=== PATIENT | female | born 2000 | race American Indian/Alaskan Native ===

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

== ENCOUNTER 2022-04-13 00:14 | Observation (INO) | payer MEDICAID ==
[2022-04-13] MEDS ORDERED: LACTATED RINGERS 500 ML IV ONE (00:37)
--- NOTE | 2022-04-13 02:07 | Ultrasound Report ---
ULTRASOUND OBSTETRIC LIMITED INDICATION / CLINICAL INFORMATION: ROL ABRUPTION. Clinical Gestational Age (GA) in weeks, days: 29 weeks 5 days TECHNIQUE: Transabdominal. COMPARISON: None available. FINDINGS: Single live intrauterine in cephalic presentation with heart rate measuring 159 bpm. Placenta is right anterolateral. No evidence of placental lifting or separation. No retroplacental he matoma. IMPRESSION: Single live intrauterine without significant abnormality. No evidence of placental abruptio n. Signer Name: Fabio Vicente MD Signed: 04/13/2022 2:02 AM Workstation Name: [id number]
[2022-04-13] MEDS ORDERED: LACTATED RINGERS 1,000 ML ONE (05:38)
[2022-04-13] MEDS ORDERED: DOCUSATE SODIUM 100 MG CAP PO PRN (05:38)
[2022-04-13] MEDS ORDERED: ACETAMINOPHEN 325 MG TAB PO PRN (05:38)
--- NOTE | 2022-04-13 06:04 | History and Physical Report ---
History of Present Illness Date of examination: 04/13/22 Chief complaint: Vaginal bleeding, no care History of present illness: This is a 21-year-old female G2, P1 who presents with vaginal bleeding that started this morning. Patient states she has had spotting the last couple days however while sitting on her sofa she felt wet and went to the bathroom and noticed large amount of blood. On pelvic exam she was noted to be closed however she had moderate blood on the glove she is admitted now for observation. Patient states she is 29 weeks by her LMP she has not had any care. Past History Past Medical History: no pertinent history Past Surgical History: no surgical history - Obstetrical History : 2 Medications and Allergies Allergies Allergy/AdvReac Type Severity Reaction Status Date / Time No Known Allergies Allergy Verified 08/24/18 02:45 Home Medications Medication Instructions Recorded Confirmed Last Taken Type Bacitracin/Polymy B Opth Oint 1 applicatio OP BID 10 Days #2 tube 08/24/18 Unknown Rx [Polysporin Opth Oint] Ibuprofen 600 mg PO TID PRN #30 tablet 08/24/18 Unknown Rx Active Meds: Active Medications Acetaminophen (Acetaminophen 325 Mg Tab) 650 mg PO Q6H PRN PRN Reason: Pain MILD(1-3)/Fever >100.5/GAO Docusate Sodium (Docusate Sodium 100 Mg Cap) 100 mg PO Q12H PRN PRN Reason: Constipation Multivitamins/Iron/Calcium ( [id number]-[id number] Fumarate-Folic Acid Vit Tab) 1 each PO QDAY ROLANDO - Vital Signs Vital signs: Vital Signs Temp Resp Pulse Ox 98.0 F 14 100 04/13/22 00:29 04/13/22 00:29 04/13/22 00:29 Temp Pulse Resp BP Pulse Ox 98.3 F 89 14 89/55 100 04/13/22 03:02 04/13/22 06:01 04/13/22 00:29 04/13/22 05:41 04/13/22 06:01 - Physical Exam Cardiovascular: Regular rate Lungs: Positive: Normal air movement Abdomen: Positive: normal appearance. Negative: tenderness Genitourinary (Female): Positive: normal external genitalia, normal perenium (Blood noted on medial thighs and vulva) Uterus: Positive: enlarged. Negative: tender Anus/Rectum: Positive: normal perianal skin Extremities: Positive: normal. Negative: tenderness, edema - Obstetrical FHR: category 1 Uterine Contraction Monitor Mode: External Cervical Dilatation: 0 Cervical Effacement Percentage: 0 station: -3 Uterine Contraction Pattern: Absent Results All other labs normal. Assessment and Plan - Patient Problems (1) Vaginal bleeding during Current Visit: Yes Status: Acute (2) No care in current Current Visit: Yes Status: Acute
[2022-04-13 06:31] LABS: Hematocrit 26.9 % (30.3-42.9); Hemoglobin 9.3 gm/dl (10.1-14.3); Mean Corpuscular HGB Conc 35 % (30-34); Mean Corpuscular Volume 78 fl (79-97); Platelet Count 230 K/mm3 (140-440); Red Blood Count 3.45 M/mm3 (3.65-5.03); Red Cell Distribution Width 14.4 % (13.2-15.2)
--- NOTE | 2022-04-13 06:42 | Ultrasound Report ---
ULTRASOUND OBSTETRIC COMPLETE INDICATION / CLINICAL INFORMATION: EFW, presentation. Clinical Gestational Age (GA) in weeks, days: 29 weeks 5 days TECHNIQUE: Transabdominal. COMPARISON: None available. FINDINGS: NUMBER: Single PRESENTATION: cephalic MEASUREMENTS: - Biparietal Diameter = 8.1 cm = 32 weeks 3 days - Head Circumference = 29.1 cm = 32 weeks 0 days - Abdominal Circumference = 27.3 cm = 31 weeks 3 days - Femur Length = 6.5 cm = 33 weeks 2 days - Estimated Weight (in grams, if calculated): 1904 - Heart Rate (beats per minute): 149 ADDITIONAL FINDINGS: None. AVERAGE ULTRASOUND AGE (AUA) in weeks, days = 32 weeks 2 days IMPRESSION: Single live intrauterine with ultrasound age of 32 weeks and 2 days. Estimated weight is 1904 g. Signer Name: Fabio Vicente MD Signed: 04/13/2022 6:37 AM Workstation Name: [id number]
[2022-04-13] MEDS ORDERED: PRENATAL VIT27-FE FUMARATE-FOLIC ACID VIT TAB PO SCH (10:00)
--- NOTE | 2022-04-13 13:34 | Discharge Summary ---
Providers - Providers Date of Admission: 04/13/22 05:38 Date of discharge: 04/13/22 Attending physician: ERNA PERRY 04/13/22 Consult to Case Management [CONS] Routine Services Needed at Discharge: Seo Manager Primary care physician: CARLOS BALDWIN MD Hospitalization Reason for admission: observation Discharge diagnosis: other (IUP) Pertinent studies: Ultrasound reports reviewed. No signs of placental abruption documented. Condition at discharge: Good Disposition: 01 HOME / SELF CARE / HOMELESS - Discharge Diagnoses (1) 32 weeks gestation of Status: Acute Comment: FHT's category 1 and no contractions noted. Pt denies feeling dizzy or lightheaded or having any difficulty with ambulation. Pt denies having any complaints and reports she feels safe to discharge to current housing. (2) No care in current Status: Acute Comment: VS reviewed with pt and Dr. Toro. Pt reports these are normal blood pressures for her. (3) Vaginal bleeding during Status: Acute Comment: No vaginal bleeding noted since pt admission to observation. Pt reports good movement and denies feeling any pain or contractions. POC d/w pt. Discussed need for care and OB follow up. Questions encouraged. No questions verbalized at this time. Pt verbalizes understanding and agrees to POC. Dr Toro made aware. Plan - Provider Discharge Summary Activity: routine, no sex for 6 weeks, no heavy lifting 4 weeks, no strenuous exercise Diet: routine Instructions: routine Additional instructions: [] Smoking cessation referral if applicable(refer to patient education folder for contact #) [] Refer to [facility] Booklet Call your doctor immediately for: * Fever > 100.5 * vaginal bleeding * more than 6 contractions in one hour * leaking vaginal fluid suspicious of bag of riggins broken * Severe persistent headache * Shortness of breath * Reddened, hot, painful area to leg or breast * decreased movement, less than 10 movements in 2 hours Please call [phone] and schedule an OB visit tomorrow. Thank you! - Follow up plan Follow up: PRIMARY CARE, [Primary Care Provider] - 7 Days
--- NOTE | 2022-04-13 16:33 | Event Note ---
Date: 04/13/22 Pt reports new episode of vaginal bleeding while she was up to the bathroom. Small, quarter-sized amount x2 of dark red vaginal spotting noted on pad. Pt denies feeling any contractions. Discussed plan to continue observation. Dr. Toro notified. New orders placed.
[2022-04-13 17:21] LABS: Basophils % (Auto) 0.2 % (0.0-1.8); Eosinophils # (Auto) 0.3 K/mm3 (0.0-0.4); Eosinophils % (Auto) 3.2 % (0.0-4.3); Hematocrit 28.1 % (30.3-42.9); Hemoglobin 9.4 gm/dl (10.1-14.3); Lymphocytes # (Auto) 1.2 K/mm3 (1.2-5.4); Mean Corpuscular HGB Conc 33 % (30-34); Mean Corpuscular Volume 79 fl (79-97); Monocytes # (Auto) 0.9 K/mm3 (0.0-0.8); Monocytes % (Auto) 7.9 % (0.0-7.3); Platelet Count 219 K/mm3 (140-440); Red Blood Count 3.55 M/mm3 (3.65-5.03); Red Cell Distribution Width 14.2 % (13.2-15.2)
--- NOTE | 2022-04-13 18:40 | Ultrasound Report ---
ULTRASOUND OBSTETRIC LIMITED INDICATION / CLINICAL INFORMATION: r/o abruption. Clinical Gestational Age (GA) in weeks, days: 29, 5 TECHNIQUE: Transabdominal. COMPARISON: None available. FINDINGS: HEART RATE (beats per minute): 156 PRESENTATION: Cephalic. ADDITIONAL FINDINGS: There is a right lateral grade 2 placenta without evidence of abruption. IMPRESSION: 1. No evidence of placental abruption Signer Name: Patrice Beebe DO Signed: 04/13/2022 6:36 PM Workstation Name: [id number]
[2022-04-14 01:16] VITALS: BP 126/55
--- NOTE | 2022-04-14 09:13 | Discharge Summary ---
Providers - Providers Date of Admission: 04/13/22 05:38 Date of discharge: 04/14/22 (pt desires d/c home) Attending physician: ERNA PERRY 04/13/22 Consult to Case Management [CONS] Routine Services Needed at Discharge: [employer] Supervisor Primary care physician: CONDENSER WINDER Hospitalization Reason for admission: vaginal bleeding Condition: Good Pertinent studies: H&H stable 9.4/28.1 Procedures: observation Disposition: HOME / SELF CARE / HOMELESS Final Discharge Diagnosis (Prints w/discharge instructions): , vaginal spotting, no care Time spent for discharge: 20 - Discharge Diagnoses (1) No care in current Status: Acute Comment: VS reviewed with pt and Dr. Toro. Pt reports these are normal blood pressures for her. (2) Vaginal bleeding during Status: Acute Comment: No vaginal bleeding noted since pt admission to observation. Pt reports good movement and denies feeling any pain or contractions. POC d/w pt. Discussed need for care and OB follow up. Questions encouraged. No questions verbalized at this time. Pt verbalizes understanding and agrees to POC. Dr Toro made aware. Core Measure Documentation - Palliative Care Palliative Care/ Comfort Measures: Not Applicable - Core Measures Any of the following diagnoses?: none Exam - Constitutional Vitals: Temp Pulse Resp BP Pulse Ox 98.6 F 107 H 18 126/55 97 04/14/22 01:22 04/14/22 09:02 04/13/22 19:52 04/14/22 01:15 04/14/22 09:02 General appearance: Present: no acute distress, well-nourished - EENT Eyes: Present: PERRL ENT: hearing intact, clear oral mucosa - Neck Neck: Present: supple, normal ROM - Respiratory Respiratory effort: normal Respiratory: bilateral: CTA - Cardiovascular Rhythm: regular - Extremities Extremities: No edema - Abdominal General gastrointestinal: Present: soft, non-tender, non-distended, normal bowel sounds Female genitourinary: Present: normal - Integumentary Integumentary: Present: clear, warm, dry - Musculoskeletal Musculoskeletal: gait normal, strength equal bilaterally - Psychiatric Psychiatric: appropriate mood/affect, intact judgment & insight - Additional findings Additional findings: no active vag bleeding, reviewed with Dr. To Plan Activity: other (pelvic rest - no sex, nothing in vagina) Diet: regular Special Instructions: no heavy lifting Follow up with: PRIMARY CARE, [Primary Care Provider] - 7 Days ERNA PERRY MD [Staff Physician] - 7 Days (Please call [phone] to schedule a appointment SUSIE. )
== END 2022-04-14 10:29 | disposition home or self-care (01) ==
LOC: TRG 00:14 → APU 02:07 → TRG 02:16 → APU 02:16 → LD 03:51 → TRG 09:20
PROVIDERS: ADMIT Obstetrics & Gynecology; ATTEND Obstetrics & Gynecology
DX: O46.93 Antepartum hemorrhage, unspecified, third trimester (principal); Z20.822 Contact with and (suspected) exposure to COVID-19; O99.013 Anemia complicating pregnancy, third trimester; D64.9 Anemia, unspecified; Z3A.32 32 weeks gestation of pregnancy
CPT/HCPCS: 36415; 59025; 76815; 76816; 85025; 85027; 86850; 86900; 86901; 96360; G0378; U0003